=== PATIENT | male | born 1965 | race Caucasian/White ===

== ENCOUNTER 2018-04-07 08:01 | Day surgery (SDC) | payer BC ==
[~2018-04-07] VITALS: Ht 177.8 cm; Wt 39.9 kg
[2018-04-07] VITALS (7 sets, daily range): BP systolic 114–129; BP diastolic 73–92; PULSE 63–91; TEMP 97.6–97.8
[~2018-04-07 08:01] MED LIST: ALLEGRA180 MG PO; ATIVAN 1MG T1 MG/TAB PO
[2018-04-07 08:48] LABS: BASO # 0.1 (0.0-0.2); EOS # 0.4 (0.0-0.7); EOS % 5.7 % (0-4.0); GRAN % 56.6 % (42.2-75.2); HEMATOCRIT 45.9 % (42.0-52.0); HEMOGLOBIN 15.6 g/dl (13.5-18.0); LYMPH # 1.9 (1.2-3.4); LYMPH % 27.3 % (20.0-51.0); MEAN CELL VOLUME 93 fl (80.0-100.0); MEAN CORPUSCULAR HEMOGLOBIN 32 pg (27.0-31.0); MEAN CORPUSCULAR HGB CONC 34 g/dl (33.0-37.0); MEAN PLATELET VOLUME 9.7 fl (7.4-10.4); MONO # 0.6 (0.1-0.6); MONO % 8.8 % (1.7-9.3); PLATELET COUNT 237 K/mm3 (130-400); RED BLOOD COUNT 4.93 M/mm3 (4.20-5.60)
[2018-04-07 10:07] LABS: ALBUMIN 4.3 gm/dL (3.5-5.0); BILIRUBIN,TOTAL 0.4 mg/dL (0.0-1.0); CREATININE, serum 1.03 mg/dL (0.66-1.25); POTASSIUM 4.5 mmol/L (3.4-5.0)
[2018-04-07] MEDS ORDERED: ROXICODONE 55 MG/TAB PO (15:07)
[2018-04-07] MEDS ORDERED: TYLENOL 500MG500 MG PO (15:08)
== END 2018-04-07 16:25 | disposition home or self-care (01) ==
LOC: SDCO 08:01
PROVIDERS: Surgery
DX: K43.6 Other and unspecified ventral hernia with obstruction, without gangrene (principal); F17.220 Nicotine dependence, chewing tobacco, uncomplicated
CPT/HCPCS: C1713; C1781; J0330; J1100; J1170; J2405; J2704; J2710; J3010; J7120

== ENCOUNTER 2019-03-30 07:29 | Day surgery (SDC) | payer BC ==
[~2019-03-30] VITALS: Ht 177.8 cm; Wt 90.9 kg
[2019-03-30] VITALS (8 sets, daily range): BP systolic 107–124; BP diastolic 77–88; PULSE 79–86; TEMP 97.5–98.4
[~2019-03-30 07:29] MED LIST changes: +ROXICODONE 55 MG/TAB PO; +TYLENOL 500MG500 MG PO
--- NOTE | 2019-03-30 12:35 | NUR ---
The patient arrived back to [facility] from the recovery room at this time. The patient appears alert and oriented and denies any pain or nausea at this time. The patient requests to try some juice, water and saltine crackers at this time. Post operative vital signs were started at this time. The patient has an abdominal binder in place at this time. The patient denies any pain or nausea at this time. Call light is within reach. Will continue to monitor the patient.
--- NOTE | 2019-03-30 12:50 | NUR ---
The patient appears to be tolerating the food and drink well and requests some more crackers at this time. Vital signs appear stable. Call light is within reach. Will continue to monitor the patient.
[2019-03-30] MEDS ORDERED: NORCO 325 MG-7.1 TAB PO (13:03)
--- NOTE | 2019-03-30 13:05 | NUR ---
The patient appears to be resting comfortably on the cart. The patient continues to deny the need for any pain medication at this time. Call light is within reach. Will continue to monitor the patient.
--- NOTE | 2019-03-30 13:20 | NUR ---
The patient requests more crackers at this time. Vital signs appear stable. Will continue to monitor the patient.
--- NOTE | 2019-03-30 13:50 | NUR ---
The patient appears to be resting quietly with his eyes closed at this time. Respirations even and unlabored. Call light remains within reach. Will continue to monitor the patient.
--- NOTE | 2019-03-30 14:20 | NUR ---
The patient appears to be resting quietly with his eyes closed at this time. Respirations even and unlabored. Vital signs appear stable. Call light remains within reach. Will continue to monitor the patient.
--- NOTE | 2019-03-30 14:45 | NUR ---
The patient ambulated to the bathroom with the stand by assistance of DEONTE Garza and appeared to tolerate the activity well. The patient voided without difficulty and is going to call his ride to head to the hospital.
--- NOTE | 2019-03-30 14:55 | NUR ---
Discharge instructions were reviewed with the patient at this time. He verbalized understanding and questions were answered. The patient's IV to his right hand was removed and a pressure dressing was applied to the site. The nurse assisted the patient to get dressed and he appeared to tolerate the activity well.
--- NOTE | 2019-03-30 15:15 | NUR ---
The patient was escorted out via wheelchair to a private vehicel by DEONTE Oro. The patient's belongings and discharge paperwork were sent with him. The patient's friends are present to drive him home.
== END 2019-03-30 15:15 | disposition home or self-care (01) ==
LOC: SDCO 07:29
DX: K43.2 Incisional hernia without obstruction or gangrene (principal); Z12.11 Encounter for screening for malignant neoplasm of colon; K21.9 Gastro-esophageal reflux disease without esophagitis; F17.290 Nicotine dependence, other tobacco product, uncomplicated
CPT/HCPCS: C1781; J0690; J1100; J1885; J2405; J2704; J3010; J7120